=== PATIENT | male | born 1990 | race Hispanic/Latino ===

== ENCOUNTER 2018-01-14 20:17 | Emergency (ER) | payer SELFPAY ==
[2018-01-14] MEDS ORDERED: Proparacaine 0.5% Ophth Soln 15 ML Bottle EYELF ONE (21:40)
--- NOTE | 2018-01-14 21:59 | EDM.PDOC ---
ED HPI GENERAL MEDICAL PROBLEM - General Chief Complaint: Eye Problems Stated Complaint: PT HAS OBJECT IN LT EYE Time Seen by Provider: 01/14/18 21:40 Source of Information: Reports: Patient History Limitations: Reports: No Limitations - History of Present Illness INITIAL COMMENTS - FREE TEXT/NARRATIVE: HISTORY AND PHYSICAL: History of present illness: [Patient comes to the ER c/o L eye irritation and discomfort. Began around 1000 today, and has worsened throughout the day. Denies any foreign body in his eye that he is aware of. 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 Does not wear glasses or contacts. No prior history of trauma or foreign body. ] Review of systems: As per history of present illness and below otherwise all systems reviewed and negative. Past medical history: As per history of present illness and as reviewed below otherwise noncontributory. Surgical history: As per history of present illness and as reviewed below otherwise noncontributory. Social history: No reported history of drug or alcohol abuse. Family history: As per history of present illness and as reviewed below otherwise noncontributory. Physical exam: HEENT: Atraumatic, normocephalic. L eye is erythematous and injected. No obvious foreign body is appreciated. Oral mucous membranes are pink and moist. Extremities: Atraumatic, negative for cords or calf pain. Ambulatory without difficulty. Neurovascular unremarkable. Neuro: Awake, alert, oriented. Motor and sensory unremarkable throughout. Exam nonfocal. Procedure: No foreign bodies visualized on inspection. Proparacaine was applied to the left eye. Once anesthesia is obtained, fluorescein strip was applied. Under Tse lamp, there is increased fluorescein uptake from 12 to 1 o'clock position of the eye. No foreign bodies appreciated. Eye is then flushed with normal saline. Impression: [Corneal abrasion] Plan: [Tobramycin 0.3% ophthalmic solution sent to [facility] for patient to use 1-2 drops in the affected eye every 4 hours. Referral given to follow-up with ophthalmology on . Strict return precautions reviewed. Patient in agreement with today's plan.] Definitive disposition and diagnosis as appropriate pending reevaluation and review of above. Left Eye Pain Score (Numeric/FACES): 7 - Related Data Allergies Allergy/AdvReac Type Severity Reaction Status Date / Time No Known Allergies Allergy Verified 01/14/18 20:58 Home Meds: Home Meds . [No Known Home Meds] 01/14/18 [History] Past Medical History - Past Health History Medical/Surgical History: Denies Medical/Surgical History Social & Family History - Tobacco Use Smoking Status *Q: Never Smoker Second Hand Smoke Exposure: No - Caffeine Use Caffeine Use: Reports: Energy Drinks - Recreational Drug Use Recreational Drug Use: No ED ROS GENERAL - Review of Systems Review Of Systems: ROS reveals no pertinent complaints other than HPI. ED EXAM GENERAL W FULL EYE - Physical Exam Exam: See Below Course - Vital Signs Last Recorded V/S: Last Vital Signs Temp 98.4 F 01/14/18 20:59 Pulse 82 01/14/18 20:59 Resp 20 01/14/18 20:59 BP 118/64 01/14/18 20:59 Pulse Ox - Orders/Labs/Meds Meds: Medications Discontinued Medications Generic Name Dose Route Start Last Admin Trade Name Freq PRN Reason Stop Dose Admin Proparacaine HCl 3 ml 01/14/18 21:40 01/14/18 21:54 Proparacaine 0.5% Ophth Soln EYELF 01/14/18 21:41 2 ml ONETIME ONE Administration Departure - Departure Time of Disposition: 22:00 Disposition: Home, Self-Care 01 Condition: Good Clinical Impression: Corneal abrasion - Discharge Information Instructions: Corneal Abrasion, [id number] Referrals: PCP,None [Primary Care Provider] - Forms: ED Department Discharge Additional Instructions: The following information is given to patients seen in the emergency department who are being discharged to home. This information is to outline your options for follow-up care. We provide all patients seen in our emergency department with a follow-up referral. The need for follow-up, as well as the timing and circumstances, are variable depending upon the specifics of your emergency department visit. If you don't have a primary care physician on staff, we will provide you with a referral. We always advise you to contact your personal physician following an emergency department visit to inform them of the circumstance of the visit and for follow-up with them and/or the need for any referrals to a consulting specialist. The emergency department will also refer you to a specialist when appropriate. This referral assures that you have the opportunity for follow-up care with a specialist. All of these measure are taken in an effort to provide you with optimal care, which includes your follow-up. Under all circumstances we always encourage you to contact your private physician who remains a resource for coordinating your care. When calling for follow-up care, please make the office aware that this follow-up is from your recent emergency room visit. If for any reason you are refused follow-up, please contact the [facility] emergency department at and asked to speak to the emergency department charge nurse. [address] [address] Follow-up with the route driver salesperson at the clinic listed above. Call tomorrow morning to be scheduled. Tylenol or ibuprofen as needed for discomfort. Use antibiotics as prescribed. Return to ER as needed as discussed.
== END 2018-01-14 22:05 | disposition home or self-care (01) ==
LOC: MW.ED 20:17
DX: S05.02XA Injury of conjunctiva and corneal abrasion without foreign body, left eye, initial encounter (principal); X58.XXXA Exposure to other specified factors, initial encounter
CPT/HCPCS: 99282; 99283

== ENCOUNTER 2019-07-18 14:09 | Emergency (ER) | payer SELFPAY ==
[2019-07-18] MEDS ORDERED: Sodium Chloride 0.9% 1,000 ML IV ONE (14:49)
--- NOTE | 2019-07-18 15:24 | EDM.PDOC ---
ED HPI GENERAL MEDICAL PROBLEM - General Chief Complaint: Gastrointestinal Problem Stated Complaint: BLOOD IN UA Time Seen by Provider: 07/18/19 14:46 Source of Information: Reports: Patient History Limitations: Reports: No Limitations - History of Present Illness INITIAL COMMENTS - FREE TEXT/NARRATIVE: HISTORY AND PHYSICAL: History of present illness: Patient is a 36-year-old male presenting to the emergency room for complaints of blood in the toilet following a bowel movement. He states he has had intermittent bleeding from his anus for the past 2 years, stating it has been "on and off", and "bright red" in appearance. He states that for the past 2 years "every time I wipe I see little bit of bright red blood" on the toilet paper after a bowel movement. What brought him in today is that when he had a bowel movement he saw "a whole lot of bright red blood that filled the toilet and it made me dizzy and lightheaded and weak". He states he has also had intermittent crampy abdominal pain "right below my belly button" today that he currently rates at a 1 out of 10. He states that this incident is new. He states he has seen a provider for hemorrhoids in the past. He denies recent rectal injury/trauma, history of diverticulitis or other GI disorders, mucus in stool, no recent travel, alcohol use, or anemia. Patient denies any fever, chills, headache, change in vision, syncope or near syncope. Denies any chest pain, back pain, shortness of breath or cough. Denies any vomiting, nausea, diarrhea, constipation or dysuria. Has not noted any blood in urine. Patient has been eating and drinking appropriately. Review of systems: As per history of present illness and below otherwise all systems reviewed and negative. Past medical history: As per history of present illness and as reviewed below otherwise noncontributory. Surgical history: As per history of present illness and as reviewed below otherwise noncontributory. Social history: See social history for further information Family history: As per history of present illness and as reviewed below otherwise noncontributory. Physical exam: General: Patient is a well-developed developed and well-nourished 28-year-old male. Alert and orientated. Nontoxic in appearance and in no acute distress. Vital signs have been reviewed by me. HEENT: Atraumatic, normocephalic, pupils equal and reactive bilaterally, negative for conjunctival pallor or scleral icterus, mucous membranes moist, TMs normal bilaterally, throat clear, neck supple, nontender, trachea midline. No drooling or trismus noted. No meningeal signs. No hot potato voice noted. Lungs: Clear to auscultation, breath sounds equal bilaterally, chest nontender. Heart: S1S2, regular rate and rhythm without overt murmur Abdomen: Soft, nondistended, tender to palpation in the left lower quadrant, otherwise Negative for masses or hepatosplenomegaly. Negative for costovertebral tenderness. Pelvis: Stable nontender. Genitourinary: Deferred. Rectal: This was done with consent GEN a shellfish processing laborer at the bedside. Good rectal tone, no internal or external hemorrhoids noticed. Hemoccult positive. Skin: Intact, warm, dry. No lesions or rashes noted. Extremities: Atraumatic, moves all extremities per self without difficulty or deficits, negative for cords or calf pain. Neurovascular unremarkable. Neuro: Awake, alert, oriented. Cranial nerves II through XII unremarkable. Cerebellum unremarkable. Motor and sensory unremarkable throughout. Exam nonfocal. Notes: Supportive care measures were reviewed and discussed. Voices understanding and is agreeable to plan of care. Denies any further questions or concerns at this time. Diagnostics: CBC, CMP, UA, lipase, CT abdomen and pelvis, Hemoccult Therapeutics: IV fluid Prescription: None Impression: Bright red blood per rectum Plan: 1. Add fiber to your diet. Drink plenty of fluids 2. Today's labs and CT scan were normal. 3. You should follow up with general surgeon for colonoscopy, referral has been made 4. Return to the ED as needed as discussed. Definitive disposition and diagnosis as appropriate pending reevaluation and review of above. Abdomen Pain Score (Numeric/FACES): 2 - Related Data Allergies Allergy/AdvReac Type Severity Reaction Status Date / Time No Known Allergies Allergy Verified 07/18/19 14:17 Home Meds: Home Meds . [No Known Home Meds] 01/14/18 [History] Past Medical History - Past Health History Medical/Surgical History: Denies Medical/Surgical History Social & Family History - Family History Family Medical History: Noncontributory - Tobacco Use Smoking Status *Q: Never Smoker - Caffeine Use Caffeine Use: Reports: Energy Drinks - Recreational Drug Use Recreational Drug Use: No ED ROS GENERAL - Review of Systems Review Of Systems: ROS reveals no pertinent complaints other than HPI. ED EXAM, GI/ABD - Physical Exam Exam: See Below (See dictation) Course - Vital Signs Last Recorded V/S: Last Vital Signs Temp 96.9 F 07/18/19 14:15 Pulse 59 L 07/18/19 14:15 Resp 18 07/18/19 14:15 BP 135/87 07/18/19 14:15 Pulse Ox 98 07/18/19 14:15 - Orders/Labs/Meds Orders: Active Orders 24 hr Category Date Time Status Hemoccult [Fecal Occult Blood Collection] [RC] Care 07/18/19 14:57 Active ASDIRECTED Labs: Laboratory Tests 07/18/19 07/18/19 07/18/19 Range/Units 15:10 15:10 15:13 WBC 5.01 (4.0-11.0) K/uL RBC 4.67 (4.50-5.90) M/uL Hgb 14.6 (13.0-17.0) g/dL Hct 40.3 (38.0-50.0) % MCV 86.3 (80.0-98.0) fL MCH 31.3 (27.0-32.0) pg MCHC 36.2 (31.0-37.0) g/dL RDW Std Deviation 38.6 (28.0-62.0) fl RDW Coeff of Idalmis 12 (11.0-15.0) % Plt Count 234 (150-400) K/uL MPV 10.00 (7.40-12.00) fL Neut % (Auto) 34.1 L (48.0-80.0) % Lymph % (Auto) 55.1 H (16.0-40.0) % [place] % (Auto) 8.2 (0.0-15.0) % Eos % (Auto) 2.0 (0.0-7.0) % Baso % (Auto) 0.6 (0.0-1.5) % Neut # (Auto) 1.7 (1.4-5.7) K/uL Lymph # (Auto) 2.8 H (0.6-2.4) K/uL [place] # (Auto) 0.4 (0.0-0.8) K/uL Eos # (Auto) 0.1 (0.0-0.7) K/uL Baso # (Auto) 0.0 (0.0-0.1) K/uL Nucleated RBC % 0.0 /100WBC Nucleated RBCs # 0 K/uL Sodium 140 (136-148) mmol/L Potassium 3.8 (3.5-5.1) mmol/L Chloride 105 (98-107) mmol/L Carbon Dioxide 27.0 (21.0-32.0) mmol/L BUN 17 (7.0-18.0) mg/dL Creatinine 0.9 (0.8-1.3) mg/dL Est Cr Clr Drug Dosing 108.30 mL/min Estimated GFR (MDRD) > 60.0 ml/min Glucose 96 (74-106) mg/dL Calcium 8.7 (8.5-10.1) mg/dL Total Bilirubin 0.4 (0.2-1.0) mg/dL AST 30 (15-37) IU/L ALT 39 (14-63) IU/L Alkaline Phosphatase 81 (46-116) U/L Total Protein 7.6 (6.4-8.2) g/dL Albumin 3.8 (3.4-5.0) g/dL Globulin 3.8 (2.6-4.0) g/dL Albumin/Globulin Ratio 1.0 (0.9-1.6) Lipase 73 (73-393) U/L Urine Color YELLOW Urine Appearance CLEAR Urine pH 6.5 (5.0-8.0) Ur Specific [place] 1.020 (1.001-1.035) Urine Protein NEGATIVE (NEGATIVE) mg/dL Urine Glucose (UA) NEGATIVE (NEGATIVE) mg/dL Urine Ketones NEGATIVE (NEGATIVE) mg/dL Urine Occult Blood NEGATIVE (NEGATIVE) Urine Nitrite NEGATIVE (NEGATIVE) Urine Bilirubin NEGATIVE (NEGATIVE) Urine Urobilinogen 0.2 (<2.0) EU/dL Ur Leukocyte Esterase NEGATIVE (NEGATIVE) Meds: Medications Discontinued Medications Generic Name Dose Route Start Last Admin Trade Name Freq PRN Reason Stop Dose Admin Sodium Chloride 1,000 mls @ 999 mls/hr 07/18/19 14:49 07/18/19 15:14 Normal Saline IV 07/18/19 15:49 999 mls/hr STAT ONE Administration Iopamidol 100 ml 07/18/19 15:55 07/18/19 15:58 Isovue Multipack-370 (76%) IVPUSH 07/18/19 15:56 100 ml ONETIME STA Administration Ondansetron HCl 4 mg 07/18/19 15:26 07/18/19 15:31 Zofran IVPUSH 07/18/19 15:27 4 mg ONETIME ONE Administration Departure - Departure Time of Disposition: 16:39 Disposition: Home, Self-Care 01 Clinical Impression: Bright red blood per rectum - Discharge Information Instructions: Rectal Bleeding, [id number] Referrals: PCP,None [Primary Care Provider] - Forms: ED Department Discharge Additional Instructions: The following information is given to patients seen in the emergency department who are being discharged to home. This information is to outline your options for follow-up care. We provide all patients seen in our emergency department with a follow-up referral. The need for follow-up, as well as the timing and circumstances, are variable depending upon the specifics of your emergency department visit. If you don't have a primary care physician on staff, we will provide you with a referral. We always advise you to contact your personal physician following an emergency department visit to inform them of the circumstance of the visit and for follow-up with them and/or the need for any referrals to a consulting specialist. The emergency department will also refer you to a specialist when appropriate. This referral assures that you have the opportunity for follow-up care with a specialist. All of these measure are taken in an effort to provide you with optimal care, which includes your follow-up. Under all circumstances we always encourage you to contact your private physician who remains a resource for coordinating your care. When calling for follow-up care, please make the office aware that this follow-up is from your recent emergency room visit. If for any reason you are refused follow-up, please contact the [facility] Emergency Department at and asked to speak to the emergency department charge nurse. [facility] [address] [place] [id number] [place] [address] [facility] - General Surgery (Dr Huffman, Dr Yi, Dr Carrion) Professional Building [address], [address] [place] [address] 1. Add fiber to your diet. Drink plenty of fluids 2. Today's labs and CT scan were normal. 3. You should follow up with general surgeon for colonoscopy, referral has been made 4. Return to the ED as needed as discussed. - My Orders Last 24 Hours: My Active Orders 07/18/19 14:57 Hemoccult [Fecal Occult Blood Collection] [RC] ASDIRECTED - Assessment/Plan Last 24 Hours: My Active Orders 07/18/19 14:57 Hemoccult [Fecal Occult Blood Collection] [RC] ASDIRECTED
[2019-07-18] MEDS ORDERED: Ondansetron 4 MG/2 ML SDV IVPUSH ONE (15:26)
[2019-07-18 15:40] LABS: BLOOD UREA NITROGEN,BUN 17 mg/dL (7.0-18.0); CHLORIDE,CL 105 mmol/L (98-107); GLUCOSE RANDOM 96 mg/dL (74-106); LIPASE 73 U/L (73-393); POTASSIUM,K 3.8 mmol/L (3.5-5.1); SODIUM,NA 140 mmol/L (136-148)
[2019-07-18] MEDS ORDERED: Iopamidol 755 MG/ML 200 ML Multipack Bottle IVPUSH STA (15:55)
--- NOTE | 2019-07-18 16:34 | CT ---
Indication: Blood in stool. Technique: Multiple contiguous axial images were obtained from the lung bases through the symphysis pubis after the intravenous administration 100 milliliters Isovue 370. Please note that all CT scans at this facility use dose modulation, iterative reconstruction, and/or weight-based dosing when appropriate to reduce radiation dose to as low as reasonably achievable. Comparison: None Findings: The lung bases are clear. The heart is normal in size. No pericardial effusion is identified. The liver, gallbladder, spleen, pancreas, adrenals, and kidneys are normal. No intrahepatic biliary ductal dilatation is identified. No hydronephrosis is identified. The small and large bowel are normal in caliber. A moderate amount of stool is identified within the colon. No free air or free fluid is identified within the abdomen or pelvis. The appendix is identified and is normal in caliber. In the pelvis, the urinary bladder has a grossly normal morphology. The prostate gland is grossly normal. No lytic or blastic lesions of the spine are identified. Impression: Normal CT scan the abdomen and pelvis with contrast Please note that all CT scans at this facility use dose modulation, iterative reconstruction, and/or weight-based dosing when appropriate to reduce radiation dose to as low as reasonably achievable. Dictated by Laine Bello MD @ Jul 18 2019 4:28PM Signed by Dr. Laine Bello @ Jul 18 2019 4:32PM
== END 2019-07-18 16:55 | disposition home or self-care (01) ==
LOC: MW.ED 14:09
DX: K62.5 Hemorrhage of anus and rectum (principal)
CPT/HCPCS: 74177; 80053; 81003; 83690; 85025; 96361; 96374; 99284; J2405; J7040; Q9967; 99283